=== PATIENT | female | born 1985 | race Asian ===

== ENCOUNTER 2018-06-08 21:00 | Observation (INO) | payer BC | END 2018-06-09 00:30 | disposition home or self-care (01) | LOC: SPU 21:00 | PROVIDERS: ADMIT Obstetrics & Gynecology; ATTEND Obstetrics & Gynecology | DX: O62.9 Abnormality of forces of labor, unspecified (principal); Z3A.34 34 weeks gestation of pregnancy | CPT/HCPCS: 81002; G0378 ==